=== PATIENT | female | born 1985 ===

== ENCOUNTER 2018-08-16 17:34 | Emergency (ER) | payer OTHER ==
[2018-08-16 17:38] VITALS: BMI 49.1
[2018-08-16 17:43] VITALS: RESP 18; O2SAT 96
[2018-08-16] MEDS ORDERED: Morphine 4 mg/ml ISec IM STA (17:54)
[2018-08-16] MEDS ORDERED: TDAP Vaccine 0.5 mL Syr IM ONE (17:54)
[2018-08-16] MEDS ORDERED: Amoxicillin-Clav 875-125 mg Tab PO STA (17:55)
--- NOTE | 2018-08-16 17:59 | ED PDOC ---
Arrival/HPI - General Chief Complaint: Foreign Body Time Seen by Provider: 08/16/18 17:43 Historian: Patient - History of Present Illness Narrative History of Present Illness (Text): 08/16/18 17:55 32yo female with no past medical history who presdnt with complaint of nail puncture to her left foot minutes [employer]. States she was walking on the street, when the nail went through her sneakers to her foot. Came to the emergency department with the nail in place to her right sneaker. Notes that she is not up to date with her TD booster. Denies any other complaint. Past Medical History - Provider Review Nursing Documentation Reviewed: Yes - Infectious Disease Hx of Infectious Diseases: None - Psychiatric Hx Substance Use: No Family/Social History - Physician Review Nursing Documentation Reviewed: Yes Family/Social History: Unknown Family HX Smoking Status: Never Smoked Hx Alcohol Use: No Hx Substance Use: No Allergies/Home Meds Allergies/Adverse Reactions: Allergies No Known Allergies Allergy (Verified 08/16/18 17:54) Review of Systems - Physician Review All systems were reviewed & negative as marked: Yes - Review of Systems Constitutional: Normal Eyes: Normal ENT: Normal Respiratory: Normal Cardiovascular: Normal Gastrointestinal: Normal Genitourinary Female: Normal Musculoskeletal: Other (Nail through sneaker to left foot) Skin: Normal Neurological: Normal Endocrine: Normal Hemo/Lymphatic: Normal Psychiatric: Normal Physical Exam Vital Signs Reviewed: Yes Vital Signs Temp Pulse Resp BP Pulse Ox 08/16/18 17:34 97.7 F 88 18 117/78 96 Temperature: Afebrile Blood Pressure: Normal Pulse: Regular Respiratory Rate: Normal Appearance: Positive for: Well-Appearing, Non-Toxic, Comfortable Pain Distress: None Mental Status: Positive for: Alert and Oriented X 3 - Systems Exam Head: Present: Atraumatic, Normocephalic Pupils: Present: PERRL Extroacular Muscles: Present: EOMI Conjunctiva: Present: Normal Mouth: Present: Moist Mucous Membranes Neck: Present: Normal Range of Motion Respiratory/Chest: Present: Clear to Auscultation, Good Air Exchange. No: Respiratory Distress, Accessory Muscle Use Cardiovascular: Present: Regular Rate and Rhythm, Normal S1, S2. No: Murmurs Abdomen: No: Tenderness, Distention, Peritoneal Signs Back: Present: Normal Inspection Upper Extremity: Present: Normal Inspection. No: Cyanosis, Edema Lower Extremity: Present: Normal Inspection, Other (Nail noted on left sneaker attached to foot). No: Edema Neurological: Present: GCS=15, CN II-XII Intact, Speech Normal Skin: Present: Warm, Dry, Normal Color. No: Rashes Psychiatric: Present: Alert, Oriented x 3, Normal Insight, Normal Concentration Medical Decision Making ED Course and Treatment: 08/16/18 17:59 PT in emergency department for stated history Her TD booster updated Placed on prophylactic abx Nail was removed in emergency department and minimal bleeding noted. Wound cleaned and dressed. Pt referred to her PMD. Disposition/Present on Arrival - Present on Arrival Any Indicators Present on Arrival: No History of DVT/PE: No History of Uncontrolled Diabetes: No Urinary Catheter: No History of Decub. Ulcer: No History Surgical Site Infection Following: None - Disposition Have Diagnosis and Disposition been Completed?: Yes Diagnosis: Puncture wound Disposition: HOME/ ROUTINE Disposition Time: 18:40 Patient Plan: Discharge Condition: STABLE Discharge Instructions (ExitCare): Wound Care (DC) Print Language: JAMAICAN Additional Instructions: Keep wound clean and dry Follow up with your doctor Return to emergency department for any new symptoms Prescriptions: Amoxicillin/Clavulanate [Augmentin 875 MG-125 MG] 1 tab PO BID #20 tab Referrals: PCP,NO [Primary Care Provider] - Follow up with primary June Clayton MD [Medical Doctor] - Follow up with primary Forms: [employer] (Telugu)
[2018-08-16 18:50] VITALS: BP 121/75; PULSE 74; TEMP 98
== END 2018-08-16 18:49 | disposition home or self-care (01) ==
LOC: ED 17:34
DX: S91.332A Puncture wound without foreign body, left foot, initial encounter (principal); W45.0XXA Nail entering through skin, initial encounter; Y93.01 Activity, walking, marching and hiking; Z23 Encounter for immunization
CPT/HCPCS: 90471; 90715; 96372; 99283; J2270